=== PATIENT | male | born 1980 | race Caucasian/White ===

== ENCOUNTER 2017-04-08 20:12 | Inpatient (IN) | payer MEDICAID ==
[~2017-04-08] VITALS: Ht 160 cm; Wt 85.4 kg
--- NOTE | ~2017-04-08 | HEMODYNAMI ---
PATIENT:NICOLÁS OVIEDO MEDICAL RECORD: [id number] : 78 [facility] ADMISSION DATE: 04/08/17 Generatedon:04/10/20179:15 Patient name: NICOLÁS OVIEDO Patient #: [id number] SSN: : 1980 Date of study: 04/10/2017 Page: Of Hemodynamic Procedure Report Patient Data Patient Demographics Procedure consent was obtained First Name: NICOLÁS Gender: Male Last Name: PREET : 1980 Middle Initial: D Age: 37 year(s) Patient #: [id number] Race: Unknown Additional ID: [id number] Contact details [address]: [address] [place] [address] State: [place] City: [place] Zip code: [address] Admission Admission Data Admission Date: 04/08/2017 Admission Time: 23:27 Room #: 2120 Procedure Procedure Types Cath Procedure Diagnostic Procedure LHC LHC w/Coronaries Miscellaneous Procedures Moderate Sedation up to 30 minutes Procedure Description Procedure Date Procedure Date: 04/10/2017 Procedure Start Time: 8:55 Procedure End Time: 9:10 Procedure Staff Name Function Jeramy Bullock MD Performing Physician Prachi Sanchez RT Monitor Sapna Hein RT Scrub Meryl Boyle RN Nurse Procedure Data Cath Procedure Fluoroscopy Diagnostic fluoroscopy Total fluoroscopy Time: 1.3 time: 1.3 min min Diagnostic fluoroscopy Total fluoroscopy dose: 361 dose: 361 mGy mGy Contrast Material Contrast Material Type Amount (ml) Isovue 300 31 Entry Location Entry Primary Successful Side Size Upsize Upsize Entry Closure Succes sful Closure Location (Fr) 1 (Fr) 2 (Fr) Remarks Device Remarks Femoral Right 5 Fr Exoseal artery Estimated blood loss: 5 ml Diagnostic catheters Device Type Used For End Catheter Placement MULTIPACK JL 4.0 5Fr Left Coronary catheter Angiography MULTIPACK 3DRC 5Fr Right Coronary catheter Angiography MULTIPACK Pigtail 5 Fr LV Angiography catheter Procedure Complications No complications Procedure Medications Medication Administration Route Dosage 0.9% NaCl I.V. 100 ml/hr Oxygen NC 2 l/min Lidocaine 2% added to field 20 Heparin Flush Bag added to field 2 bags (1000units/500ml NS) Hemodynamics Rest Heart Rate: 107 (bpm) Pressure Samples Time Site Value (mmHg) Purpose Heart Use Rate(bpm) 9:05 LV 138/1,33 EDP 104 9:06 AO 118/94(102) Pullback 107 9:06 LV 113/18,30 Pullback 107 Gradients Valve Time Site 1 Site 2 Mean SEP/DFP Peak To Heart Use (mmHg) (sec/min) Peak Rate (mmHg) (bpm) Aortic 9:06 LV AO 0 9 0 107 113/18,30 118/94(102) Calculations Valve P-P Mean Valve Index Valve Source Name Gradient Area Flow (cm2) Aortic 0 0 0 0 Snapshots Pre Cath Intra NCS Post Cath Vital Signs Time Heart Resp SPO2 etCO2 NIBP (mmHg) Rhythm Pain Sedation Rate (ipm) (%) (mmHg) Status Level (bpm) 8:46:30 107 16 96 0 134/98(109) NSR 0 (11) 10(A) , No pain 8:50:37 110 26 95 0 135/103(118) NSR 0 (11) 10(A) , No pain 8:55:55 107 20 100 0 128/95(117) NSR 0 (11) 10(A) , No pain 9:00:00 102 15 88 0 125/97(111) NSR 0 (11) 10(A) , No pain 9:04:06 106 20 98 0 133/102(114) NSR 0 (11) 10(A) , No pain 9:08:14 108 16 98 0 132/103(119) NSR 0 (11) 10(A) , No pain Medications Time Medication Route Dose Verified Delivered Reason Notes Ef fectiveness by by 8:45:50 0.9% NaCl I.V. 100ml/hr Jeramy Meryl used for Kobe Boyle RN procedure 8:45:58 Oxygen NC 2 l/min Jeramy Meryl Per Kobe Boyle RN physician 8:46:07 Lidocaine 2% added 20ml Jeramy Jeramy for local to vial Kobe Bullock MD anesthetic field 8:46:13 Heparin Flush added 2 bags Jeramy Jeramy used for Bag to Norred Norred MD procedure (1000units/500ml field NS) Procedure Log Time Note 8:30:12 Prachijudith Sanchez RT(R) sent for patient. Start room use. 8:40:19 Time tracking: Regular hours 8:40:23 Plan of Care:Hemodynamics will remain stable., Cardiac rhythm will remain stable., Comfort level will be maintained., Respiratory function will remain adequate., Patient/ family verbilizes understanding of procedure., Procedure tolerated without complication., Recovers from procedure without complications.. 8:40:31 Patient received from Med II to CCL 2 Alert and oriented. Tansferred to table in Supine position. 8:40:32 Warm blankets applied, and tiesha hugger turned on for patient comfort. 8:40:33 Correct patient and procedure confirmed by team. 8:40:34 Signed procedure consent form obtained from patient. 8:40:34 ECG and BP/O2 sat monitors applied to patient. 8:45:30 Vital chart was started 8:45:50 0.9% NaCl 100ml/hr I.V. was administered by Meryl Boyle RN; used for procedure; 8:45:58 Oxygen 2 l/min NC was administered by Meryl Boyle RN; Per physician; 8:46:07 Lidocaine 2% 20ml vial added to field was administered by Jeramy Bullock MD; for local anesthetic; 8:46:13 Heparin Flush Bag (1000units/500ml NS) 2 bags added to field was administered by Jeramy Bullock MD; used for procedure; 8:48:35 Baseline sample Acquired. 8:48:40 Full Disclosure recording started 8:48:50 H&P Date Dictated: 04/08/2017 Within 30 days and on chart., H&P Addendum completed by physician on day of procedure. (MUST COMPLETE FOR ALL OUTPATIENTS). 8:48:52 Pre-procedure instructions explained to patient. 8:48:52 Pre-op teaching completed and patient verbalized understanding. 8:48:54 Family in waiting room. 8:48:55 Patient NPO since Midnight. 8:49:29 Is the patient allergic to Iodine/contrast media? No. 8:49:30 Was the patient premedicated? No 8:52:02 Is patient on blood thinner?No 8:52:04 Patient diabetic? Yes. 8:52:14 If diabetic: On Metformin? Yes 8:52:18 If on Metformin: Last Dose? 04/07/2017 8:52:22 Previous problem with sedation/anesthesia? No ? 8:52:23 Snore? Yes 8:52:24 Sleep apnea? Yes 8:52:25 Deviated septum? No 8:52:27 Opens mouth fully? Yes 8:52:28 Sticks out tongue? Yes 8:52:30 Airway obstruction? No ? 8:52:33 Dentures? No ? 8:52:37 Pre procedure: right dorsailis pedis pulse 1+ Palpable, but thready & weak; easily obliterated 8:52:40 Pre procedure: left dorsailis pedis pulse 1+ Palpable, but thready & weak; easily obliterated 8:52:43 Patient pain scale 0/10 ?. 8:52:51 IV patent on arrival in right wrist with 0.9% NaCl at [facility]. 8:54:43 Lab results completed and on chart. 8:54:48 Right groin area was prepped with chlora-prep and draped in sterile fashion 8:54:49 Alarms reviewed by R. N. 8:54:54 Sharps counted by scrub and verified by R.N. 8:54:57 Physician arrived 8:54:58 --------ALL STOP TIME OUT------ 8:54:58 Final Timeout: patient, procedure, and site verified with staff and physician. All members of the team are in agreement. 8:55:00 Right groin site verified by team. 8:55:05 Physical assessment completed. ASA score P 2 - A patient with mild systemic disease as per Jeramy Bullock MD. 8:55:10 Sedation plan: IV Moderate Sedation Medication:Versed, Fentanyl 8:55:20 Use device set Femoral Dx 8:55:21 ACIST Syringe (61998) opened to sterile field. 8:55:22 Bag Decanter (2002S) opened to sterile field. 8:55:22 Medline Cath Pack ([id number]) opened to sterile field. 8:55:23 SHEATH 5FR [place] (MAX249) opened to sterile field. 8:55:23 DIAGNOSTIC WIRE .035 260cm J wire (232465) opened to sterile field. 8:55:24 ACIST Hand Control (12196) opened to sterile field. 8:55:25 ACIST Manifold (36006) opened to sterile field. 8:55:25 DIAGNOSTIC Multipack 5Fr catheter set (KL8515) opened to sterile field. 8:55:26 Tegaderm 4 x 4 (1626W) opened to sterile field. 8:55:34 Procedure started. 8:55:39 Local anesthetic to right femoral artery with Lidocaine 2% by Jeramy Bullock MD.INITIAL ACCESS ONLY 8:56:56 Access obtained with 4Fr micropunture. 8:57:43 Zero performed for pressure channel P1 8:58:56 A 5 Fr sheath was inserted into the Right Femoral artery 9:00:33 A MULTIPACK JL 4.0 5Fr catheter was advanced over the wire and used for Left Coronary Angiography. 9:01:54 LCA angiography performed. 9:01:57 Injector settings: Ml/sec: 3, Volume: 6, 9:02:34 Catheter removed. 9:02:48 A MULTIPACK 3DRC 5Fr catheter was advanced over the wire and used for Right Coronary Angiography. 9:03:24 RCA angiography performed. 9:03:29 Injector settings: Ml/sec: 3, Volume: 6, 9:04:15 Catheter removed. 9:04:20 A MULTIPACK Pigtail 5 Fr catheter was advanced over the wire and used for LV Angiography. 9:05:08 Zero performed for pressure channel P1 9:05:12 Zero performed for pressure channel P1 9:05:38 LV hemodynamics recorded. 9:05:40 LV gram done using PATHAK 9:05:42 Injector settings: Ml/sec: 5, Volume: 15, 9:06:16 EF : 10 % 9:06:21 Catheter removed. 9:06:59 EXOSEAL 5Fr (EX500) opened to sterile field. 9:08:55 Sheath removed intact; hemostasis achieved with Exoseal to the Right Femoral artery. 9:08:57 Procedure ended.(Physican Out) 9:09:11 Fluoroscopy time 01.30 minutes. 9:09:20 Fluoroscopy dose: 361 mGy 9:09:20 Flurop Dose total: 361 9:09:34 Contrast amount:Isovue 300 31ml. 9:09:35 Sharps counted by scrub and verified by R.N. 9:09:40 Insertion/operative site no bleeding no hematoma. 9:09:43 Post-op/insertion site Right Femoral artery dressed using a 4 x 4 and Tegaderm. 9:10:05 Post right femoral artery:stable 9:10:07 Post Procedure Pulses reassessed and unchanged 9:10:10 Post procedure rhythm: unchanged. 9:10:12 Estimated blood loss: 5 ml 9:10:14 Post procedure instruction explained to patient.Patient verbalizes understanding. 9:10:14 Patient needs reinforcement of post procedure teaching. 9:10:23 Procedure type changed to Cath procedure, Diagnostic procedure, LHC, LHC w/Coronaries, Miscellaneous Procedures, Moderate Sedation up to 30 minutes 9:10:24 Procedure and supply charges have been captured, reviewed, submitted and are correct. 9:10:29 Procedure Complication : No complications 9:10:31 Vital chart was stopped 9:10:31 See physician's report for complete and final results. 9:10:39 Report given to Med II. 9:10:47 Patient transfered to Med II with Stretcher. 9:10:48 Procedure ended. 9:10:48 Full Disclosure recording stopped 9:11:21 End room use (Document Last) Device Usage Item Name Manufacture Quantity Catalog Hospital Part Current Minimal L ot# / Number Charge Number Stock Stock Serial# Code ACIST Acist 1 91154 120545 166760 968930 20 Syringe Medical (30438) Systems Inc Bag Microtek 1 751715 77043 883054 5 Decanter Medical Inc. () Medline Cardinal 1 [id number] 914611 86029 650620 5 Cath Pack Health ([id number]) SHEATH 5FR Terumo 1 ITY715 200943 271201 520815 40 [place] (LOQ501) DIAGNOSTIC [facility] [place] 1 394306 047653 619760 453667 30 WIRE .035 260cm J wire (743189) ACIST Hand Acist 1 38247 985125 470098 661661 5 Control Medical (01659) Systems Inc ACIST Acist 1 73387 477067 742840 316699 5 Manifold Medical (80022) Systems Inc DIAGNOSTIC Cardinal 1 BR0429 916552 76236 441521 30 Multipack Health 5Fr catheter set (TG6406) Tegaderm 4 3M 1 1626W 055626 524329 924963 5 x 4 (1626W) MULTIPACK Cardinal 1 370308 5 JL 4.0 5Fr Health catheter MULTIPACK Cardinal 1 945304 5 3DRC 5Fr Health catheter MULTIPACK Cardinal 1 599829 5 Pigtail 5 Health Fr catheter EXOSEAL 5Fr Cardinal 1 EX500 657140 726267 321035 10 (EX500) Health Signature Audit [place] Stage Time Signature Unsigned Intra-Procedure 04/10/2017 Sapna Angel Luis 9:15:10 AM RT(R) Signatures Monitor : Prachi Sanchez Signature : RT Date : Time : [place] [address] [facility] [place] [address]
--- NOTE | ~2017-04-08 | EC ---
PATIENT:NICOLÁS OVIEDO DATE OF SERVICE: 04/08/17 SEX: M MEDICAL RECORD: [id number] DATE OF : [birth year] LOCATION:D.M2 D.212 AGE OF PATIENT: 37 ADMISSION DATE: 04/08/17 REFERRING PHYSICIAN: INTERPRETING PHYSICIAN: SARAH VYAS MD ECHOCARDIOGRAM REPORT ECHO CHARGES 4 ECHO COMPLETE CLINICAL DIAGNOSIS: CHF HX OF HTN ECHOCARDIOGRAPHIC MEASUREMENTS (adult normal given) AC root (d.<3.7cm) 3.6 cm LV Septum d (<1.2 cm> 0.9 cm Valve Excursion 1.2 cm LV Septum (systole) 1.0 cm Left Atria (s.<4.0cm> 4.8 cm LVPW d(<1.2cm) 0.9 cm RV (d.<2.3cm) 4.1 cm LVPW (sytole) 1.2 cm LV diastole(<5.6CM) 6.8 cm MV E-F(>70mm/sec) cm LV systole 5.6 cm LVOT Diameter 1.9 cm MV exc.(>10mm) 1.9 cm Est.ejection fraction (50-75%) % Pericardial Effusion N DOPPLER: LVIT cm/sec A 40.0 cm/sec E 91.0 cm/sec LA cm/sec RVSP 44 mmHg LVOT 92 cm/sec AOP1/2T 365 m/s Asc. Ao 116 cm/sec RVOT 53 cm/sec RA cm/sec PA 89 cm/sec AV Gradient Peak 5.41 mmHg AV Mean 2.61 mmHg AV Area 1.9 cm MV Gradient Peak 3.62 mmHg MV Mean 1.62 mmHg MV Area cm COMMENTS: Welder/Fitter: Prema VALADEZ Bridal Sales Consultant: 4 Dr. Vyas TAPE# PACS DATE OF SERVICE: 04/09/2017 PROCEDURE: Transthoracic echocardiogram. FINDINGS: 1. The left ventricle is mildly dilated with global hypokinesis. Overall ejection fraction is 10% to 15%. Inflow characteristics show a restrictive inflow. 2. The mitral valve is structurally normal. There is mild mitral regurgitation. ECHOCARDIOGRAM REPORT [id number] NICOLÁS OVIEDO 3. Tricuspid valve is structurally normal with mild tricuspid regurgitation. RVSP 44 mmHg. 4. The pericardium is normal. 5. The right atrium is mildly dilated. 6. The right ventricle is not well visualized and also appears to be mildly dilated, but with near normal function. CONCLUSIONS: The patient has a dilated cardiomyopathy. There is a suggestion in the lateral wall, which is not well visualized as hypokinesis and more distinct regional wall motion abnormalities, but overall it looks to be a global hypokinesis with severe reduction in LV systolic function and evidence of moderate pulmonary hypertension likely from left heart failure. TRANSINT:[id number] Voice Confirmation ID: [id number] DOCUMENT ID: [id number] SARAH VYAS MD at 1522 CC: [id number] DICTATION DATE: 04/09/17 1203 FAILURE ANALYSIS TECHNICIAN: 04/09/17 1215 DIS IN 04/13/17 [place] [address] [place] [address]
[2017-04-08 21:39] LABS: BASOPHILS 0.1 % (0-2); EOSINOPHILS 0.4 % (0-7); HEMATOCRIT 49.4 % (42.0-54.0); HEMOGLOBIN 15.9 g/dL (13.5-17.5); IMMATURE GRANULOCYTES 0.4 % (0-5); LYMPHOCYTES 11.3 % (15-50); MCH 29.6 pg (26.0-34.0); MCHC 32.2 g/dL (31.0-37.0); MONOCYTES 9.6 % (2-11); NEUTROPHILS 78.2 % (40-80); PLATELET COUNT 302 10x3/uL (130-400); RBC 5.37 10x6/uL (4.20-6.10); RDW 15.3 % (11.5-14.5); WBC 14.2 10x3/uL (4.8-10.8)
[2017-04-08 21:50] LABS: INR 1.17 (0.85-1.17); PROTIME 14.5 SECONDS (11.6-15.0)
[2017-04-08 21:52] LABS: D-DIMER-QUANTITATIVE 1.12 ug/mLFEU (0.20-0.54)
[2017-04-08 22:01] LABS: ALBUMIN 2.8 g/dL (3.4-5.0); ALKALINE PHOSPHATASE 108 U/L (46-116); ALT (SGPT) 47 U/L (10-68); BILIRUBIN - TOTAL 1.06 mg/dL (0.2-1.3); CALC OSMOLALITY 280 mosm/kg (275-300); CALCIUM 9.1 mg/dL (8.5-10.1); CARBON DIOXIDE 28.4 mmol/L (21.0-32.0); CHLORIDE - SERUM 99 mmol/L (98-107); CREATININE - SERUM 1.1 mg/dL (0.6-1.3); GLUCOSE 198 mg/dL (74-106); POTASSIUM - SERUM 5.2 mmol/L (3.5-5.1); PROTEIN - SERUM 6.8 g/dL (6.4-8.2); SODIUM 136 mmol/L (136-145); UREA NITROGEN 21 mg/dL (7-18); eGFR NON AFRICAN AMERICAN 79 mL/min (90-120)
[2017-04-08 22:16] LABS: CREATINE KINASE 101 UL (21-232); MAGNESIUM - SERUM 1.7 mg/dL (1.8-2.4); PRO BNP 4652 pg/mL (0-125)
[2017-04-08 22:22] LABS: TROPONIN-I 1.076 ng/mL (0.000-0.060)
[2017-04-09] VITALS (7 sets, daily range): BP systolic 113–141; BP diastolic 87–109; Ht 160 cm; Wt 85.4 kg
[2017-04-09] MEDS ORDERED: NITROSTAT0.4 MG SL (03:03)
[2017-04-09] MEDS ORDERED: ZOLOFT25 MG PO (03:04)
[2017-04-09 04:23] LABS: BASOPHILS 0.1 % (0-2); EOSINOPHILS 0.7 % (0-7); HEMATOCRIT 47.7 % (42.0-54.0); HEMOGLOBIN 15.5 g/dL (13.5-17.5); IMMATURE GRANULOCYTES 0.3 % (0-5); LYMPHOCYTES 16.7 % (15-50); MCH 29.5 pg (26.0-34.0); MCHC 32.5 g/dL (31.0-37.0); MCV 90.9 fL (80.0-100.0); MEAN PLATELET VOLUME 10.5 fL (7.4-10.4); MONOCYTES 9.8 % (2-11); NEUTROPHILS 72.4 % (40-80); PLATELET COUNT 320 10x3/uL (130-400); RBC 5.25 10x6/uL (4.20-6.10); RDW 15.4 % (11.5-14.5); WBC 11.7 10x3/uL (4.8-10.8)
[2017-04-09 05:05] LABS: ALBUMIN 2.8 g/dL (3.4-5.0); ALKALINE PHOSPHATASE 104 U/L (46-116); ALT (SGPT) 54 U/L (10-68); BILIRUBIN - TOTAL 1.03 mg/dL (0.2-1.3); CALC OSMOLALITY 281 mosm/kg (275-300); CALCIUM 8.7 mg/dL (8.5-10.1); CARBON DIOXIDE 28.5 mmol/L (21.0-32.0); CHLORIDE - SERUM 95 mmol/L (98-107); CKMB 3.9 U/L (0.0-3.6); CREATINE KINASE 106 UL (21-232); CREATININE - SERUM 1.1 mg/dL (0.6-1.3); GLUCOSE 292 mg/dL (74-106); POTASSIUM - SERUM 4.3 mmol/L (3.5-5.1); PROTEIN - SERUM 6.8 g/dL (6.4-8.2); SODIUM 134 mmol/L (136-145); TROPONIN-I 1.025 ng/mL (0.000-0.060); UREA NITROGEN 22 mg/dL (7-18); eGFR NON AFRICAN AMERICAN 79 mL/min (90-120)
[2017-04-09 10:01] LABS: TROPONIN-I 0.941 ng/mL (0.000-0.060)
[2017-04-09 11:13] LABS: UDS - AMPHET POSITIVE QUAL (NEGATIVE); UDS - BARB NEGATIVE QUAL (NEGATIVE); UDS - BENZO NEGATIVE QUAL (NEGATIVE); UDS - COCAINE NEGATIVE QUAL (NEGATIVE); UDS - OPIATE POSITIVE QUAL (NEGATIVE); UDS - PCP NEGATIVE QUAL (NEGATIVE); UDS - THC POSITIVE QUAL (NEGATIVE)
[2017-04-09 12:14] LABS: APPEARANCE CLEAR (CLEAR); BILIRUBIN NEGATIVE (NEGATIVE); COLOR YELLOW (YELLOW); GLUCOSE NEGATIVE (NEGATIVE); KETONE NEGATIVE (NEGATIVE); NITRITE NEGATIVE (NEGATIVE); PROTEIN 3+ mg/dL (NEGATIVE); UROBILINOGEN NORMAL (NORMAL)
[2017-04-09 12:16] LABS: BACTERIA FEW /hpf (NONE SEEN); MUCUS <1+ /lpf (NONE SEEN); WHITE CELLS - URINE 0-5 /hpf (0-5)
[2017-04-09 12:17] LABS: EPITHELIAL CELLS 0-5 /hpf (0-5)
[2017-04-09 12:18] LABS: AMORPHOUS SEDIMENT <1+ /lpf (NONE SEEN)
[2017-04-09 12:20] LABS: RED CELLS - URINE 0-5 /hpf (0-5)
[2017-04-09 12:27] LABS: GRANULAR CAST 0-5 /lpf (NONE SEEN)
[2017-04-09 17:54] LABS: CKMB 4.5 U/L (0.0-3.6); CREATINE KINASE 88 UL (21-232)
[2017-04-09 17:56] LABS: TROPONIN-I 0.812 ng/mL (0.000-0.060)
[2017-04-09 20:32] LABS: CALC OSMOLALITY 281 mosm/kg (275-300); CALCIUM 8.5 mg/dL (8.5-10.1); CARBON DIOXIDE 27.5 mmol/L (21.0-32.0); CHLORIDE - SERUM 97 mmol/L (98-107); POTASSIUM - SERUM 3.8 mmol/L (3.5-5.1); SODIUM 138 mmol/L (136-145); UREA NITROGEN 22 mg/dL (7-18); eGFR NON AFRICAN AMERICAN 89 mL/min (90-120)
[2017-04-09 20:36] LABS: GLUCOSE 151 mg/dL (74-106)
[2017-04-10 01:49] VITALS: BP 127/86
[2017-04-10 05:36] VITALS: BP 110/78
[2017-04-10 05:40] LABS: HEMOGLOBIN 16.6 g/dL (13.5-17.5); MCH 29.5 pg (26.0-34.0); MCHC 32.5 g/dL (31.0-37.0); MCV 90.6 fL (80.0-100.0); MEAN PLATELET VOLUME 10.3 fL (7.4-10.4); PLATELET COUNT 344 10x3/uL (130-400); RBC 5.63 10x6/uL (4.20-6.10); RDW 15.3 % (11.5-14.5); WBC 9.5 10x3/uL (4.8-10.8)
[2017-04-10 05:57] LABS: CALC OSMOLALITY 280 mosm/kg (275-300); CALCIUM 8.3 mg/dL (8.5-10.1); CARBON DIOXIDE 31.8 mmol/L (21.0-32.0); CHLORIDE - SERUM 98 mmol/L (98-107); CHOL - HDL RATIO 7.6 ratio (2.3-4.9); CHOLESTEROL, TOTAL 159 mg/dL (0-200); CREATININE - SERUM 0.8 mg/dL (0.6-1.3); GLUCOSE 163 mg/dL (74-106); HDL CHOLESTEROL 21 mg/dL (32-96); LDL CHOLESTEROL 116 mg/dL (0-100); LDL-HDL RATIO 5.5 ratio (1.5-3.5); SODIUM 137 mmol/L (136-145); TRIGLYCERIDE 112 mg/dL (30-200); UREA NITROGEN 20 mg/dL (7-18); eGFR NON AFRICAN AMERICAN > 90 mL/min (90-120)
[2017-04-10 07:25] LABS: EOSINOPHILS 2 % (0-7); LYMPHOCYTES 20 % (15-50); MONOCYTES 6 % (2-11); NEUTROPHILS 72 % (40-80); PLATELET ESTIMATE NORMAL
[2017-04-10 07:42] VITALS: BP 116/79
[2017-04-10 12:41] VITALS: BP 144/71
[2017-04-10 17:09] VITALS: BP 116/71
[2017-04-10 21:30] VITALS: BP 114/78
[2017-04-11 06:29] LABS: BASOPHILS 0.1 % (0-2); EOSINOPHILS 1.5 % (0-7); HEMOGLOBIN 15.2 g/dL (13.5-17.5); IMMATURE GRANULOCYTES 0.4 % (0-5); LYMPHOCYTES 16.3 % (15-50); MCH 29.2 pg (26.0-34.0); MCHC 31.7 g/dL (31.0-37.0); MCV 92.3 fL (80.0-100.0); MEAN PLATELET VOLUME 10.5 fL (7.4-10.4); MONOCYTES 12.4 % (2-11); NEUTROPHILS 69.3 % (40-80); PLATELET COUNT 297 10x3/uL (130-400); RDW 15.6 % (11.5-14.5)
[2017-04-11 06:35] LABS: CALCIUM 8.4 mg/dL (8.5-10.1); CARBON DIOXIDE 31.3 mmol/L (21.0-32.0); CHLORIDE - SERUM 100 mmol/L (98-107); POTASSIUM - SERUM 3.8 mmol/L (3.5-5.1); SODIUM 139 mmol/L (136-145); UREA NITROGEN 15 mg/dL (7-18); eGFR NON AFRICAN AMERICAN 79 mL/min (90-120)
[2017-04-11 06:36] VITALS: BP 124/90
[2017-04-11 06:38] LABS: CALC OSMOLALITY 285 mosm/kg (275-300); CREATININE - SERUM 1.1 mg/dL (0.6-1.3); GLUCOSE 233 mg/dL (74-106)
[2017-04-11 09:09] VITALS: BP 132/96
[2017-04-11 09:13] LABS: HEPATITIS C ANTIBODY <0.1 (0.0-0.9)
[2017-04-11 12:15] VITALS: BP 127/88
[2017-04-11 15:58] VITALS: BP 136/97
[2017-04-11 20:25] VITALS: BP 114/86
[2017-04-12 01:13] VITALS: BP 109/70
[2017-04-12 04:32] VITALS: BP 110/78
[2017-04-12 05:26] LABS: BASOPHILS 0.1 % (0-2); EOSINOPHILS 1.7 % (0-7); HEMATOCRIT 46.7 % (42.0-54.0); HEMOGLOBIN 14.8 g/dL (13.5-17.5); IMMATURE GRANULOCYTES 0.2 % (0-5); MCH 29.1 pg (26.0-34.0); MCHC 31.7 g/dL (31.0-37.0); MCV 91.9 fL (80.0-100.0); MEAN PLATELET VOLUME 10.5 fL (7.4-10.4); MONOCYTES 13.1 % (2-11); NEUTROPHILS 66.9 % (40-80); PLATELET COUNT 285 10x3/uL (130-400); RBC 5.08 10x6/uL (4.20-6.10); RDW 15.6 % (11.5-14.5); WBC 9.6 10x3/uL (4.8-10.8)
[2017-04-12 05:59] LABS: CALC OSMOLALITY 276 mosm/kg (275-300); CALCIUM 8.5 mg/dL (8.5-10.1); CARBON DIOXIDE 30.7 mmol/L (21.0-32.0); CHLORIDE - SERUM 99 mmol/L (98-107); CREATININE - SERUM 0.9 mg/dL (0.6-1.3); MAGNESIUM - SERUM 1.5 mg/dL (1.8-2.4); PHOSPHOROUS 3.9 mg/dL (2.5-4.9); POTASSIUM - SERUM 4.2 mmol/L (3.5-5.1); SODIUM 136 mmol/L (136-145); UREA NITROGEN 14 mg/dL (7-18); eGFR NON AFRICAN AMERICAN > 90 mL/min (90-120)
[2017-04-12 06:01] LABS: GLUCOSE 179 mg/dL (74-106)
[2017-04-12 07:00] VITALS: BP 110/88
[2017-04-12 12:48] VITALS: BP 122/94
[2017-04-12 16:00] VITALS: BP 120/86
[2017-04-12 21:41] VITALS: BP 119/92
[2017-04-13 01:10] VITALS: BP 120/86
[2017-04-13 04:58] VITALS: BP 106/76
[2017-04-13 06:35] LABS: CALC OSMOLALITY 279 mosm/kg (275-300); CALCIUM 8.8 mg/dL (8.5-10.1); CHLORIDE - SERUM 98 mmol/L (98-107); CREATININE - SERUM 0.9 mg/dL (0.6-1.3); GLUCOSE 196 mg/dL (74-106); POTASSIUM - SERUM 4.3 mmol/L (3.5-5.1); SODIUM 136 mmol/L (136-145); UREA NITROGEN 21 mg/dL (7-18); eGFR NON AFRICAN AMERICAN > 90 mL/min (90-120)
[2017-04-13 06:51] LABS: BASOPHILS 0.1 % (0-2); EOSINOPHILS 1.7 % (0-7); HEMATOCRIT 48.3 % (42.0-54.0); HEMOGLOBIN 15.3 g/dL (13.5-17.5); IMMATURE GRANULOCYTES 0.3 % (0-5); LYMPHOCYTES 18.7 % (15-50); MCH 29.2 pg (26.0-34.0); MCHC 31.7 g/dL (31.0-37.0); MCV 92.2 fL (80.0-100.0); MEAN PLATELET VOLUME 10.5 fL (7.4-10.4); MONOCYTES 13.5 % (2-11); NEUTROPHILS 65.7 % (40-80); PLATELET COUNT 296 10x3/uL (130-400); RBC 5.24 10x6/uL (4.20-6.10); RDW 15.7 % (11.5-14.5); WBC 8.6 10x3/uL (4.8-10.8)
[2017-04-13 07:45] VITALS: BP 113/86
[2017-04-13 11:37] VITALS: BP 127/92
[2017-04-13 16:17] VITALS: BP 118/86
[2017-04-13] MEDS ORDERED: GLUCOPHAGE500 MG PO (16:26)
[2017-04-13] MEDS ORDERED: OMNICEF300 MG PO (17:59)
[2017-04-13] MEDS ORDERED: COREG6.25 MG PO (17:59)
[2017-04-13] MEDS ORDERED: LISINOPRIL2.5 MG PO (17:59)
[2017-04-13] MEDS ORDERED: IPRAT-ALBUT 0.5-3 ML UPD (18:01)
[2017-04-13] MEDS ORDERED: LASIX40 MG PO (18:01)
[2017-04-13] MEDS ORDERED: PULMICORT0.5 MG/21 UPD (18:16)
[2017-04-17 20:09] LABS: IMMUNOGLOBULIN E 371 IU/mL (0-100)
== END 2017-04-13 19:37 | disposition home or self-care (01) | DRG 286 ==
LOC: D.ER 20:12 → D.M2 23:27
PROVIDERS: Family Medicine; Internal Medicine Cardiovascular Disease; Internal Medicine Nephrology; Internal Medicine Pulmonary Disease; Nurse Practitioner Family
PROC: B2151ZZ Fluoroscopy of Left Heart using Low Osmolar Contrast (ICD-10-PCS; 2017-04-10)
PROC: 4A023N7 Measurement of Cardiac Sampling and Pressure, Left Heart, Percutaneous Approach (ICD-10-PCS; 2017-04-10)
PROC: B2111ZZ Fluoroscopy of Multiple Coronary Arteries using Low Osmolar Contrast (ICD-10-PCS; principal; 2017-04-10 12:00)
DX: I11.0 Hypertensive heart disease with heart failure (principal); J96.21 Acute and chronic respiratory failure with hypoxia; J18.9 Pneumonia, unspecified organism; N17.9 Acute kidney failure, unspecified; F17.203 Nicotine dependence unspecified, with withdrawal; J44.1 Chronic obstructive pulmonary disease with (acute) exacerbation; J44.0 Chronic obstructive pulmonary disease with (acute) lower respiratory infection; I50.21 Acute systolic (congestive) heart failure; I42.0 Dilated cardiomyopathy; E83.42 Hypomagnesemia; F15.90 Other stimulant use, unspecified, uncomplicated; F12.90 Cannabis use, unspecified, uncomplicated; F11.90 Opioid use, unspecified, uncomplicated; K21.9 Gastro-esophageal reflux disease without esophagitis; E11.65 Type 2 diabetes mellitus with hyperglycemia; F41.8 Other specified anxiety disorders; I27.20 Pulmonary hypertension, unspecified; I25.10 Atherosclerotic heart disease of native coronary artery without angina pectoris; R04.0 Epistaxis; R16.0 Hepatomegaly, not elsewhere classified; E78.5 Hyperlipidemia, unspecified; E87.5 Hyperkalemia

== ENCOUNTER 2017-05-27 13:34 | Emergency (ER) | payer MEDICAID ==
[2017-04-09 12:43] VITALS: BMI 33.1
[~2017-05-27 13:34] MED LIST: COREG6.25 MG PO; GLUCOPHAGE500 MG PO; IPRAT-ALBUT 0.5-3 ML UPD; LASIX40 MG PO; LISINOPRIL2.5 MG PO; NITROSTAT0.4 MG SL; OMNICEF300 MG PO; PULMICORT0.5 MG/21 UPD; ZOLOFT25 MG PO
[2017-05-27 14:54] LABS: BASOPHILS 0.1 % (0-2); EOSINOPHILS 0.4 % (0-7); HEMATOCRIT 48.9 % (42.0-54.0); HEMOGLOBIN 15.7 g/dL (13.5-17.5); IMMATURE GRANULOCYTES 0.2 % (0-5); LYMPHOCYTES 9.4 % (15-50); MCH 29.4 pg (26.0-34.0); MCHC 32.1 g/dL (31.0-37.0); MCV 91.6 fL (80.0-100.0); MEAN PLATELET VOLUME 9.8 fL (7.4-10.4); MONOCYTES 8.5 % (2-11); NEUTROPHILS 81.4 % (40-80); PLATELET COUNT 286 10x3/uL (130-400); RBC 5.34 10x6/uL (4.20-6.10); RDW 16.3 % (11.5-14.5)
[2017-05-27 16:05] LABS: ALBUMIN 2.2 g/dL (3.4-5.0); ALKALINE PHOSPHATASE 118 U/L (46-116); ALT (SGPT) 54 U/L (10-68); BILIRUBIN - TOTAL 0.89 mg/dL (0.2-1.3); CALC OSMOLALITY 282 mosm/kg (275-300); CALCIUM 8.2 mg/dL (8.5-10.1); CARBON DIOXIDE 24.6 mmol/L (21.0-32.0); CHLORIDE - SERUM 101 mmol/L (98-107); CREATININE - SERUM 0.9 mg/dL (0.6-1.3); GLUCOSE 239 mg/dL (74-106); POTASSIUM - SERUM 3.8 mmol/L (3.5-5.1); PROTEIN - SERUM 6.2 g/dL (6.4-8.2); SODIUM 136 mmol/L (136-145); UREA NITROGEN 20 mg/dL (7-18); eGFR NON AFRICAN AMERICAN > 90 mL/min (90-120)
[2017-05-27 16:12] LABS: CKMB 5.6 U/L (0.0-3.6); PRO BNP 3483 pg/mL (0-125); TROPONIN-I 0.037 ng/mL (0.000-0.060)
== END 2017-05-27 16:39 | disposition home or self-care (01) ==
LOC: D.ER 13:34
PROVIDERS: Emergency Medicine
DX: I50.9 Heart failure, unspecified (principal); Z91.19 Patient's noncompliance with other medical treatment and regimen; F17.200 Nicotine dependence, unspecified, uncomplicated; R00.0 Tachycardia, unspecified